=== PATIENT | female | born 1995 | race Caucasian/White ===

== ENCOUNTER 2021-11-28 15:27 | Day surgery (SDC) | payer BC, MEDICAID, OTHER, SELFPAY ==
[2021-11-28 16:03] VITALS: BMI 31.7
[2021-11-28] MEDS ORDERED: hydrALAZINE 20 MG/ML VIAL SLOW IVP PRN (16:16)
== END 2021-11-28 20:27 | disposition home or self-care (01) ==
LOC: CSHLD/OP 15:27
PROVIDERS: ATTEND Obstetrics & Gynecology
DX: O23.592 Infection of other part of genital tract in pregnancy, second trimester (principal); B96.89 Other specified bacterial agents as the cause of diseases classified elsewhere; O26.852 Spotting complicating pregnancy, second trimester; Z3A.27 27 weeks gestation of pregnancy
CPT/HCPCS: 76815; 87480; 87510; 87660; 99283